=== PATIENT | female | born 1935 | race Caucasian/White ===

== ENCOUNTER 2023-02-26 22:05 | Outpatient (REF) | payer MEDICARE, OTHER, SELFPAY ==
[2023-02-27 08:38] LABS: PCR FLU A POSITIVE PCR FLU A (Negative); PCR FLU B Negative PCR FLU B (Negative); SARS PCR* ND (Negative)
== END 2023-02-26 22:06 | disposition home or self-care (01) ==
LOC: LAB 22:05
PROVIDERS: PCP Family Medicine; Visit Provider Nurse Practitioner Adult Health
DX: J10.1 Influenza due to other identified influenza virus with other respiratory manifestations (principal)
CPT/HCPCS: 87631